=== PATIENT | female | born 1930 | race Caucasian/White ===

== ENCOUNTER 2016-09-01 20:34 | Emergency (ER) | payer OTHER ==
[~2016-09-01] VITALS: Ht 162.6 cm; Wt 61.5 kg
[~2016-09-01 20:34] MED LIST: ATEN-51 PO; LEVO50TA74 PO; LOPE2CAP; LORA-401 PO; LORA-441; LOSA100T47; OMEP20CA16 PO; SUCR1TAB
[2016-09-01 20:46] VITALS: Ht 162.6 cm; Wt 61.5 kg
[2016-09-01] MEDS ORDERED: SOD CHLORIDE 0.9% 500 ML IV STA (21:33)
[2016-09-01] MEDS ORDERED: HYDR12.58 PO (22:02)
[2016-09-01] MEDS ORDERED: PANT20TA3 PO (22:02)
[2016-09-01] MEDS ORDERED: LORA10CA PO (22:04)
--- NOTE | 2016-09-01 22:04 | RADRPT ---
PROCEDURE: CT head, without contrast. CLINICAL INDICATION: Altered mental status. TECHNIQUE: Noncontrast CT examination of the head, with axial, sagittal and coronal reformatted im ages. Automated dose exposure control was employed. CTDI: 44.11 and DLP: 720.23. COMPARISON: None. FINDINGS: Chronic changes of atrophy and small vessel disease white matter. Question remote small lacunar infa rct in the right basal ganglia. No acute hemorrhage. Subarachnoid spaces are substantially preserved and symmetric. Ventricles ar e unremarkable. No mass effect. Grover-white matter distinction is preserved without evident decreased attenuation t o suggest acute or recent infarct. Sinuses and osseous structures are unremarkable. IMPRESSION: Chronic changes of atrophy and small vessel disease white matter, and otherwise, no acute process in the head. RPTAT: [facility] Physician Celina Date Time Electronically viewed and signed by Physician Celina on 09/01/2016 22:04 RS/
[2016-09-01 22:11] LABS: ADD SCAN DIFF NO
[2016-09-01 22:13] LABS: BASOPHIL # 0.1 10^3/ul (0.0-0.1); BASOPHILS % 0.5 % (0.0-2.0); EOSINOPHILS % 0.2 % (0.0-7.0); HEMATOCRIT 41.6 % (37.0-47.0); LYMPHOCYTES # 2.3 10^3/ul (0.8-2.9); LYMPHOCYTES % 17.1 % (15.0-51.0); MEAN CORPUSCULAR HEMOGLOBIN 28.9 pg (29.0-33.0); MEAN CORPUSCULAR HGB CONC 33.7 g/dl (32.0-37.0); MEAN PLATELET VOLUME 9.9 fl (7.4-10.4); MONOCYTE # 0.9 10^3/ul (0.3-0.9); NEUTROPHILS % 74.7 % (39.0-77.0); PLATELET COUNT 293 10^3/UL (140-415); RED BLOOD COUNT 4.84 10^6/ul (4.20-5.40); RED CELL DISTRIBUTION WIDTH 12.8 % (11.5-14.5); WHITE BLOOD COUNT 13.4 10^3/ul (4.8-10.8)
--- NOTE | 2016-09-01 22:22 | RADRPT ---
PROCEDURE: XR Chest. CLINICAL INDICATION: Altered mental status. TECHNIQUE: Single frontal view of the chest. COMPARISON: 01/26/2014. FINDINGS: The cardiomediastinal silhouette is within normal limits. Calcified thoracic aorta. No significant change in prominent right pulmonary artery versus lymph node at the right hilum. Hyperinflation of C OPD in changes of centrolobular emphysema. The lungs are clear. No signs of pleural fluid or pneumo thorax are seen. The osseous structures and soft tissues are unremarkable. IMPRESSION: No evidence for active cardiopulmonary disease. RPTAT: [facility] Physician Celina Date Time Electronically viewed and signed by Physician Celina on 09/01/2016 22:22 RS/
[2016-09-01 22:32] LABS: ADD UMIC YES; URINE BILIRUBIN (Dip) NEGATIVE (NEGATIVE); URINE BLOOD (Dip) TRACE (NEGATIVE); URINE COLOR LT. YELLOW (YELLOW); URINE GLUCOSE (Dip) NEGATIVE (NEGATIVE); URINE KETONES (Dip) NEGATIVE (NEGATIVE); URINE LEUKOCYTE ESTERASE (Dip) 1+ (NEGATIVE); URINE NITRITE (Dip) NEGATIVE (NEGATIVE); URINE TOTAL PROTEIN (Dip) NEGATIVE (NEGATIVE); URINE UROBILINOGEN (Dip) 0.2 E.U./dL (0.1-1.0)
[2016-09-01 22:41] LABS: SQUAMOUS EPITHELIAL CELL,UR MODERATE; URINE RBCS 0-2 /HPF (0)
[2016-09-01 22:43] LABS: INR 0.99; PROTIME 13.1 Sec (12.2-14.2)
[2016-09-01 22:45] LABS: CHLORIDE 96 mmol/L (97-110)
[2016-09-01 22:46] LABS: SODIUM 135 mmol/L (135-144)
[2016-09-01 22:47] LABS: POTASSIUM 3.3 mmol/L (3.5-5.1)
[2016-09-01 22:49] LABS: ALANINE AMINOTRANSFERASE 24 IU/L (13-69); ALBUMIN/GLOBULIN RATIO 1.11; ALKALINE PHOSPHATASE 125 IU/L (42-121); ANION GAP 15 (8-16); ASPARTATE AMINO TRANSFERASE 23 IU/L (15-46); BILIRUBIN,INDIRECT 0.5 mg/dl (0-1.1); BILIRUBIN,TOTAL 0.5 mg/dl (0.2-1.3); BLOOD UREA NITROGEN 15 mg/dl (7-20); CALCIUM 9.1 mg/dl (8.4-10.2); CARBON DIOXIDE 27 mmol/L (21-31); CREATININE 0.84 mg/dl (0.44-1.00); GLUCOSE 132 mg/dl (70-220); TOTAL PROTEIN 7.6 g/dl (6.1-8.1)
[2016-09-01 23:09] LABS: TROPONIN-I < 0.012 ng/ml (0.00-0.12)
[2016-09-02] MEDS ORDERED: hydrALAzine 20 MG INJ IV ONE (01:00)
[2016-09-02] MEDS ORDERED: LORAZEPAM 2 MG INJ IV ONE (02:00)
--- NOTE | 2016-09-02 02:24 | ERA ---
ER Documentation Chief Complaint Date/Time DATE: 09/02/16 TIME: 02:07 Chief Complaint dizziness x 1 week HPI This is a 85-year-old female comes in with complaints of lightheadedness and feeling like she is in the past on for the past week. She noted that her blood pressures been elevated. Denies any chest pain or palpitations. Denies any fevers or chills. Denies any focal neurological complaints. Denies any other current issues. ROS All systems reviewed and are negative except as per history of present illness. Medications Home Meds Reported Medications Loratadine* (Claritin*) 10 Mg Capsule, 10 MG PO DAILY, CAP 09/01/16 Pantoprazole* (Pantoprazole*) 20 Mg Tablet.dr, 20 MG PO BID, TAB 09/01/16 Hydrochlorothiazide* (Hydrochlorothiazide*) 12.5 Mg Tablet, 12.5 MG PO DAILY, # 30 TAB 09/01/16 Losartan Potassium* (Cozaar*) 100 Mg Tablet, DAILY 11/18/11 Loperamide Hcl* (Imodium*) 2 Mg Capsule, PRN 11/18/11 Lorazepam* (Ativan*) 1 Mg Tablet, 1 MG PO DAILY 07/15/11 Omeprazole* (Omeprazole*) 20 Mg Capsule.dr, 20 MG PO DAILY 07/15/11 Levothyroxine Sodium* (Levothyroxine Sodium*) 50 Mcg Tablet, 50 MCG PO DAILY 07/15/11 Discontinued Reported Medications Sucralfate (Sucralfate) 1 G Tablet, TID 11/18/11 Lorazepam* (Ativan*) 0.5 Mg Tablet, BID 11/18/11 Atenolol* (Atenolol*) 25 Mg Tablet, 25 MG PO DAILY 07/15/11 Allergies Allergies: Coded Allergies: Sulfa (Sulfonamide Antibiotics) (Verified Allergy, Intermediate, DIZZINESS , 09/01/16) Penicillins (Verified Allergy, Unknown, 09/01/16) iodine (Verified Allergy, Unknown, 09/01/16) PMhx/Soc History of Surgery: Yes (Bilateral Mastectomy; TAHBSO) Anesthesia Reaction: No Hx Neurological Disorder: No Hx Respiratory Disorders: No Hx Cardiac Disorders: Yes (HTN; Hypercholesterolemia) Hx Psychiatric Problems: Yes (Anxiety) Hx Miscellaneous Medical Probl: Yes (GERD; Hypothyroidism; Diarrhea; Fall) Hx Alcohol Use: No Hx Substance Use: No Hx Tobacco Use: No Physical Exam Vitals Vital Signs Date Time Temp Pulse Resp B/P Pulse Ox O2 Delivery O2 Flow Rate FiO2 09/02/16 01:35 100 18 170/54 96 Room Air 09/02/16 00:00 77 21 177/78 95 Room Air 09/01/16 20:46 98.7 92 20 147/70 95 Physical Exam Const: [] Head: Atraumatic Eyes: Normal Conjunctiva ENT: Normal External Ears, Nose and Mouth. Neck: Full range of motion..~ No meningismus. Resp: Clear to auscultation bilaterally Cardio: Regular rate and rhythm, no murmurs Abd: Soft, non tender, non distended. Normal bowel sounds Skin: No petechiae or rashes Back: No midline or flank tenderness Ext: No cyanosis, or edema Neur: Awake and alert Psych: Normal Mood and Affect Result Diagram: 09/01/16220409/01/162204 Results 24 hrs Laboratory Tests Test 09/01/16 22:05 09/01/16 22:20 White Blood Count 13.410^3/ul Red Blood Count 4.8410^6/ul Hemoglobin 14.0g/dl Hematocrit 41.6% Mean Corpuscular Volume 86.0fl Mean Corpuscular Hemoglobin 28.9pg Mean Corpuscular Hemoglobin Concent 33.7g/dl Red Cell Distribution Width 12.8% Platelet Count 25294^3/UL Mean Platelet Volume 9.9fl Neutrophils % 74.7% Lymphocytes % 17.1% Monocytes % 7.0% Eosinophils % 0.2% Basophils % 0.5% Nucleated Red Blood Cells % 0.0/100WBC Neutrophils # 10.010^3/ul Lymphocytes # 2.310^3/ul Monocytes # 0.910^3/ul Eosinophils # 0.010^3/ul Basophils # 0.110^3/ul Nucleated Red Blood Cells # 0.010^3/ul Prothrombin Time 13.1Sec Prothrombin Time Ratio 1.0 INR International Normalized Ratio 0.99 Activated Partial Thromboplast Time 35.0Sec Sodium Level 135mmol/L Potassium Level 3.3mmol/L Chloride Level 96mmol/L Carbon Dioxide Level 27mmol/L Anion Gap 15 Blood Urea Nitrogen 15mg/dl Creatinine 0.84mg/dl Glucose Level 132mg/dl Calcium Level 9.1mg/dl Total Bilirubin 0.5mg/dl Direct Bilirubin 0.00mg/dl Indirect Bilirubin 0.5mg/dl Aspartate Amino Transf (AST/SGOT) 23IU/L Alanine Aminotransferase (ALT/SGPT) 24IU/L Alkaline Phosphatase 125IU/L Troponin I < 0.012ng/ml Total Protein 7.6g/dl Albumin 4.0g/dl Globulin 3.60g/dl Albumin/Globulin Ratio 1.11 Urine Color LT. YELLOW Urine Clarity CLEAR Urine pH 5.5 Urine Specific [place] <=1.005 Urine Ketones NEGATIVE Urine Nitrite NEGATIVE Urine Bilirubin NEGATIVE Urine Urobilinogen 0.2 E.U./dL Urine Leukocyte Esterase 1+ Urine Microscopic RBC 0-2/HPF Urine Microscopic WBC 5-10/HPF Urine Squamous Epithelial Cells MODERATE Urine Hemoglobin TRACE Urine Glucose NEGATIVE% Urine Total Protein NEGATIVE Current Medications Medications (Trade) Dose Ordered Sig/Carmen Route PRN Reason Start Time Stop Time Status Last Admin Dose Admin Sodium Chloride (NS) 500 ml @ 500 mls/hr Q1H STAT IV 09/01/16 21:33 09/01/16 22:32 DC 09/01/16 22:24 Hydralazine HCl (Apresoline) 20 mg ONCE ONCE IV 09/02/16 01:00 09/02/16 01:01 DC 09/02/16 00:48 Lorazepam (Ativan) 1 mg ONCE ONCE IV 09/02/16 02:00 09/02/16 02:01 DC Procedures/MDM EKG: Rate/Rhythm: Normal Sinus Rhythm QRS, ST, T-waves: No changes consistent w/ acute ischemia Impression: No evidence of ischemia or arrhythmia Chest X-ray 1V Interpreted by me: Soft Tissue: No acute abnormalities Bones: No acute abnormalities Mediastinum/Cardiac Silhouette/Lungs: No acute abnormalities Patient's syncopal symptoms are unstable at this time and require inpatient workup. No evidence of PE or dissection at this time but occult ischemia or fatal dysrhythmia cannot be ruled out. Patient will be admitted to PCP Departure Diagnosis: Primary Impression: Dizziness Additional Impression: Near syncope Condition: Serious FALLON MALDONADO Sep 02, 2016 02:24
[2016-09-02 07:00] VITALS: TEMP 98.4
[2016-09-02 13:46] VITALS: RESP 19
[2016-09-02] MEDS ORDERED: DOCUSATE SODIUM 100 MG CAP PO PRN (14:30)
[2016-09-02] MEDS ORDERED: NACL 0.9% 3 ML SYG IV SCH (14:30)
[2016-09-02] MEDS ORDERED: ONDANSETRON 4 MG INJ IV PRN (14:30)
[2016-09-02] MEDS ORDERED: LORAZEPAM 0.5 MG TAB PO PRN (14:30)
[2016-09-02] MEDS ORDERED: ACETAMINOPHEN 325 MG TAB PO PRN (14:30)
[2016-09-02] MEDS ORDERED: hydrALAzine 20 MG INJ IV PRN (14:30)
[2016-09-02] MEDS ORDERED: LOSARTAN 50 MG TAB PO SCH (14:30)
--- NOTE | 2016-09-02 14:32 | HP ---
DATE OF ADMISSION: 09/01/2016 CHIEF COMPLAINT: Dizziness for 1 week. HISTORY OF PRESENT ILLNESS: The patient is an 85-year-old female with past medical history positive for gastritis, hypertension, hypothyroidism, anxiety, hypercholesterolemia. The patient presented to the emergency room with complaints of lightheadedness and feeling like she is about to pass out f or several weeks. The patient also noted that her blood pressure being elevated. Patient denies an y chest pain, denies any palpitation, denies any fever or chills. Denies any nausea, vomiting, and diarrhea. On admission in the emergency room, patient's blood pressure was elevated to 177 to 78. The patient was noted to have leukocytosis with white blood cells being 13,400, but no fever. The p atient underwent 12-lead EKG, which revealed sinus rhythm with no changes consistent with acute isch emia. Troponin was negative. The patient was given hydralazine in the emergency room and given IV fluids and Ativan. Patient will be admitted for further evaluation and management to telemetry [facility]. PAST MEDICAL HISTORY: Per HPI. PAST SURGICAL HISTORY: Patient has extensive surgical history: The patient is status post cholecys tectomy, status post hysterectomy and bilateral oophorectomy. FAMILY HISTORY: Noncontributory. SOCIAL HISTORY: Patient lives at home. Patient denies any tobacco use, denies any alcohol use, den ies any illicit drug use. ALLERGIES: THE PATIENT IS ALLERGIC TO: 1. PENICILLIN. 2. SULFA ANTIBIOTICS. 3. IODINE. HOME MEDICATIONS: Includes: 1. Claritin. 2. Protonix. 3. Hydrochlorothiazide. 4. Cozaar 5. Imodium. 6. Ativan. 7. Omeprazole. 8. Levothyroxine. REVIEW OF SYSTEMS: A 12-point review of system is negative unless mentioned in the HPI. PHYSICAL ASSESSMENT GENERAL: Well-developed, well-nourished female in no acute distress. VITAL SIGNS: Temperature is 98.4, pulse is 90, blood pressure is 152/61, respiratory rate 19, oxyge n saturation 95% on room air. HEENT: Head is atraumatic, normocephalic. Pupils equal, round, reactive to light and accommodation . Oral mucosa is pink and moist. NECK: Supple, no cervical lymphadenopathy, no thyromegaly. CHEST: Lungs clear bilaterally. There are no rhonchi, wheezes, rales noted. CARDIOVASCULAR: Normal S1, S2. No murmurs, gallops, clicks, rubs noted. ABDOMEN: Round, soft, nondistended, nontender. There is no guarding, no rebound tenderness. EXTREMITIES: There is no edema, clubbing, cyanosis. Pulses equal bilaterally 2+. SKIN: There is no rash, petechiae noted. NEUROLOGIC: The patient is awake, alert and oriented x4. No focal deficits noted. Motor strength 5/5 in all extremities. LABORATORY DATA: On admission, CBC: White blood cells 15.4, hemoglobin 14.0, hematocrit 41.6, plat elets 293. Chemistry: Sodium is 135, potassium 3.3, chloride 96, carbon dioxide 27, anion gap 15, BUN is 15, creatinine 0.84. AST is 23, ALT 24, alkaline phosphatase 125. Troponin less than 0.012. IMAGING: Chest x-ray with no evidence for acute cardiopulmonary disease. Brain CT with chronic gerda nges of atrophy and small vessel disease, white matter and otherwise no acute process in the head. ASSESSMENT AND PLAN: 1. Near syncopal episode. Will admit the patient to telemetry floor. Dr. Issa will be asked to see patient in cardiology consultation. Continue to monitor heart rate 12-lead EKG and 2D echo to evaluate ejection fraction. We will also obtain TSH and T4. We will check cardiac enzymes x3 to ru le out acute coronary syndrome. 2. Hypertension. Continue hydralazine p.r.n. for systolic blood pressure above 170. Resume patien t's home antihypertensive medication. 3. Hypothyroidism. Continue Synthroid. 4. Gastroesophageal reflux disease. Continue Protonix. 5. We will continue Lovenox for deep venous thrombosis prophylaxis. Further recommendations based on clinical course. Plan of care discussed with Dr. Ross. Dictated By: MILTON THOMPSON [employer] for JAKOB ROSS MD SR/NTS Conf#: [id number] DID#: [id number]
[2016-09-02] MEDS ORDERED: POTASSIUM CHLORIDE (SR) 10 MEQ TAB PO ONE (15:00)
[2016-09-02 15:26] VITALS: BP 150/75; PULSE 75
[2016-09-02 17:27] LABS: THYROID STIMULATING HORMONE 0.87 MIU/L (0.465-4.680)
[2016-09-02] MEDS ORDERED: PANTOPRAZOLE SODIUM 20 MG TABEC PO SCH (21:00)
[2016-09-03] MEDS ORDERED: HYDROCHLOROTHIAZIDE 12.5 MG CAP PO SCH (09:00)
[2016-09-03] MEDS ORDERED: LEVOTHYROXINE 50 MCG TAB PO SCH (09:00)
== END 2016-09-02 15:27 | disposition left against medical advice (07) ==
LOC: E/R 20:34
DX: R42 Dizziness and giddiness (principal); R55 Syncope and collapse; I10 Essential (primary) hypertension; E03.9 Hypothyroidism, unspecified
CPT/HCPCS: 36415; 70450; 71010; 80053; 81001; 83880; 84439; 84443; 84484; 85025; 85610; 85730; 93005; 96374; 96375; J0360; J2060; J7040; Z7502; Z7610; 81003